=== PATIENT | male | born 1940 | race Asian ===

== ENCOUNTER 2020-06-06 22:07 | Emergency (ER) | payer OTHER ==
[~2020-06-06] VITALS: Ht 170.2 cm; Wt 66.0 kg
[2020-06-06 22:28] VITALS: BP 185/86
[2020-06-06] MEDS ORDERED: OXYMETAZOLINE HCL NASAL SPRAY 15ML BOTHNSTRLS SCH (22:45)
== END 2020-06-07 00:40 | disposition home or self-care (01) ==
LOC: ER 22:07
DX: R04.0 Epistaxis (principal)
CPT/HCPCS: 99281